=== PATIENT | male | born 1975 | race Caucasian/White ===

== ENCOUNTER 2019-09-15 06:09 | Emergency (ER) | payer MEDICARE, OTHER ==
[~2019-09-15] VITALS: Ht 177.8 cm; Wt 68.2 kg
[~2019-09-15 06:09] MED LIST: CHLO25CA10 PO; FLUO20CA39 PO; LAMO150T2 PO
[2019-09-15] MEDS ORDERED: LIDOcaine 1%/PF 5ML 10 MG/ML VIAL SQ ONE ×2 (06:45→07:30)
[2019-09-15] MEDS ORDERED: clindamycin 150mg capsule PO ONE (06:50)
[2019-09-15] MEDS ORDERED: TETanus/Pertussis (Acell)/Diphther VAC/PF (Tdap-Adult) 0.5ml syringe IMVAC ONE (06:50)
[2019-09-15] MEDS ORDERED: ciprofloxacin 250mg tablet PO ONE (06:50)
[2019-09-15] MEDS ORDERED: tetanus & diphtheria toxoid (Td) vaccine 0.5ml IMVAC ONE (06:50)
[2019-09-15 07:16] VITALS: BP 138/88
[2019-09-15] MEDS ORDERED: CLIN-142 PO (07:26)
[2019-09-15] MEDS ORDERED: CIPR-259 PO (07:26)
[2019-09-15] MEDS ORDERED: IBUP-1984 PO (07:26)
== END 2019-09-15 08:43 | disposition home or self-care (01) ==
LOC: ER 06:09
DX: S61.412A Laceration without foreign body of left hand, initial encounter (principal); S61.215A Laceration without foreign body of left ring finger without damage to nail, initial encounter; F41.9 Anxiety disorder, unspecified; F31.9 Bipolar disorder, unspecified; Z86.69 Personal history of other diseases of the nervous system and sense organs; Z88.0 Allergy status to penicillin; Z79.899 Other long term (current) drug therapy; W54.0XXA Bitten by dog, initial encounter; Y93.89 Activity, other specified; Y92.89 Other specified places as the place of occurrence of the external cause; Y99.8 Other external cause status
CPT/HCPCS: 12004; 73120; 90471; 99284

== ENCOUNTER 2019-09-16 12:53 | Emergency (ER) | payer MEDICARE, OTHER ==
[~2019-09-16] VITALS: Ht 177.8 cm; Wt 65.0 kg
[~2019-09-16 12:53] MED LIST changes: +BUSP10TA11 PO; +CIPR-259 PO; +CLIN-142 PO; +DESV50TA PO; +ESZO3TAB40 PO; +HYDR-3686 PO; +NALT50TA PO; +TRAZ-251 PO
[2019-09-16 12:58] VITALS: BP 144/104
== END 2019-09-16 14:35 | disposition home or self-care (01) ==
LOC: ER 12:53
DX: S61.412D Laceration without foreign body of left hand, subsequent encounter (principal); S61.215D Laceration without foreign body of left ring finger without damage to nail, subsequent encounter; W54.0XXD Bitten by dog, subsequent encounter
CPT/HCPCS: 99281; 99282

== ENCOUNTER 2019-09-23 07:06 | Emergency (ER) | payer MEDICARE ==
[~2019-09-23] VITALS: Ht 180.3 cm; Wt 68.2 kg
[~2019-09-23 07:06] MED LIST changes: -BUSP10TA11 PO; -DESV50TA PO; -ESZO3TAB40 PO; -HYDR-3686 PO; -NALT50TA PO; -TRAZ-251 PO
[2019-09-23] MEDS ORDERED: LORazepam 2 mg/ml vial IV ONE (07:15)
[2019-09-23] MEDS ORDERED: metoclopramide 5 mg/ml inj IV ONE (07:20)
[2019-09-23] MEDS ORDERED: diphenhydrAMINE 50 mg/ml inj IV ONE (07:20)
[2019-09-23 07:28] LABS: BASOPHILS # (AUTO) 0.1 X10'3 (0-0.2); BASOPHILS % (AUTO) 1.3 % (0-1); EOSINOPHILS % (AUTO) 0.1 % (0-6); HEMATOCRIT 29.3 % (42.0-52.0); HEMOGLOBIN 9.7 g/dl (14.0-17.9); LYMPHOCYTES # (AUTO) 0.3 X10'3 (1.1-4.8); LYMPHOCYTES % (AUTO) 5.6 % (21-51); MEAN CORPUSCULAR HEMOGLOBIN 28.2 PG (27.0-31.0); MEAN CORPUSCULAR VOLUME 85.4 FL (78-98); MEAN PLATELET VOLUME 6.5 FL (7.4-10.4); MONOCYTES # (AUTO) 0.8 X10'3 (0-0.9); MONOCYTES % (AUTO) 14.1 % (2-12); NEUTROPHILS # (AUTO) 4.7 X10'3 (1.8-7.7); NEUTROPHILS % (AUTO) 78.9 % (42-75); PLATELET COUNT 298 X10'3 (140-440); RED BLOOD COUNT 3.43 X10'6 (4.70-6.10); RED CELL DISTRIBUTION WIDTH 18.8 % (11.5-14.5)
[2019-09-23 07:42] LABS: ALANINE AMINOTRANSFERASE 13 U/L (12-78); ALBUMIN 3.1 G/DL (3.4-5.0); ALBUMIN/GLOBULIN RATIO 0.9 (1.1-1.5); ALKALINE PHOSPHATASE 59 IU/L (46-116); ANION GAP 19 (8-16); ASPARTATE AMINO TRANSFERASE 19 U/L (10-37); BILIRUBIN,TOTAL 0.5 MG/DL (0.1-1.0); BLOOD UREA NITROGEN 13 MG/DL (7-18); BUN/CREATININE RATIO 11.3 (5.4-32.0); CHLORIDE 104 MMOL/L (99-107); CREATININE 1.15 MG/DL (0.60-1.10); GLUCOSE 100 MG/DL (70-104); MAGNESIUM 1.7 MG/DL (1.5-2.4); POTASSIUM 3.5 MMOL/L (3.5-5.1); SODIUM 140 MMOL/L (135-145); TOTAL CARBON DIOXIDE 17.1 MMOL/L (24-32); TOTAL PROTEIN 6.6 G/DL (6.4-8.2); eGFR 69 ML/MIN
[2019-09-23] MEDS ORDERED: normal saline 1000ML IV soln IVB ONE (09:35)
[2019-09-23 09:38] LABS: ANISOCYTOSIS 2+; PLATELET ESTIMATE NORMAL
[2019-09-23 09:44] VITALS: BP 129/56
[2019-09-23] MEDS ORDERED: GABA-532 PO (09:50)
== END 2019-09-23 11:11 | disposition home or self-care (01) ==
LOC: ER 07:06
DX: E86.0 Dehydration (principal); F41.9 Anxiety disorder, unspecified; F10.239 Alcohol dependence with withdrawal, unspecified; F31.9 Bipolar disorder, unspecified; Z86.69 Personal history of other diseases of the nervous system and sense organs; Z88.0 Allergy status to penicillin; Z79.2 Long term (current) use of antibiotics; Z79.899 Other long term (current) drug therapy; Y90.9 Presence of alcohol in blood, level not specified
CPT/HCPCS: 36415; 80053; 83735; 84484; 85025; 93005; 96361; 96374; 96375; 99284; J1200; J2060; J2765; J7030

== ENCOUNTER 2019-12-10 16:27 | Inpatient (IN) | payer MEDICARE ==
[~2019-12-10] VITALS: Ht 180.3 cm; Wt 68.2 kg
[~2019-12-10 16:27] MED LIST changes: +BUSP10TA11 PO; -CIPR-259 PO; -CLIN-142 PO; +DESV50TA PO; +ESZO3TAB40 PO; +GABA-532 PO; +HYDR-3686 PO; +NALT50TA PO; +TRAZ-251 PO
[2019-12-10] MEDS ORDERED: LORazepam 2 mg/ml vial IV ONE ×2 (17:30→19:10)
[2019-12-10] MEDS ORDERED: ondansetron/PF 4mg/2ml inj IV ONE (17:30)
[2019-12-10] MEDS ORDERED: ringers solution, lacted 1,000 ML IV ONE ×3 (17:30→20:20)
[2019-12-10 18:17] LABS: BASOPHILS # (AUTO) 0.1 X10'3 (0-0.2); BASOPHILS % (AUTO) 1.3 % (0-1); EOSINOPHILS % (AUTO) 0 % (0-6); HEMOGLOBIN 11.4 g/dl (14.0-17.9); LYMPHOCYTES # (AUTO) 0.3 X10'3 (1.1-4.8); LYMPHOCYTES % (AUTO) 4.9 % (21-51); MEAN CORPUSCULAR HGB CONC 32.4 g/dL (33.0-36.5); MEAN CORPUSCULAR VOLUME 83.2 FL (78-98); MEAN PLATELET VOLUME 7.2 FL (7.4-10.4); MONOCYTES # (AUTO) 0.4 X10'3 (0-0.9); MONOCYTES % (AUTO) 7.2 % (2-12); NEUTROPHILS # (AUTO) 4.8 X10'3 (1.8-7.7); NEUTROPHILS % (AUTO) 86.6 % (42-75); PLATELET COUNT 221 X10'3 (140-440); RED BLOOD COUNT 4.21 X10'6 (4.70-6.10); RED CELL DISTRIBUTION WIDTH 22.8 % (11.5-14.5); WHITE BLOOD COUNT 5.5 X10'3 (4.5-11.0)
[2019-12-10 18:41] LABS: ALANINE AMINOTRANSFERASE 72 U/L (12-78); ALBUMIN 3.9 G/DL (3.4-5.0); ALBUMIN/GLOBULIN RATIO 1.1 (1.1-1.5); ALKALINE PHOSPHATASE 93 IU/L (46-116); ANION GAP 25 (8-16); ASPARTATE AMINO TRANSFERASE 122 U/L (10-37); BILIRUBIN,TOTAL 0.7 MG/DL (0.1-1.0); BLOOD UREA NITROGEN 20 MG/DL (7-18); BUN/CREATININE RATIO 13.7 (5.4-32.0); CALCIUM 8.1 MG/DL (8.5-10.1); CHLORIDE 96 MMOL/L (99-107); CREATININE 1.46 MG/DL (0.60-1.10); ETHANOL 0.254 GM/DL (0.0-0.010); GLUCOSE 65 MG/DL (70-104); LIPASE 685 U/L (73-393); POTASSIUM 4.2 MMOL/L (3.5-5.1); SODIUM 137 MMOL/L (135-145); TOTAL CARBON DIOXIDE 15.7 MMOL/L (24-32); TOTAL PROTEIN 7.3 G/DL (6.4-8.2); TROPONIN I < 0.04 NG/ML (0.0-0.05); eGFR 52 ML/MIN
[2019-12-10 18:46] LABS: ACETAMINOPHEN < 2.0 UG/ML (10-30); VALPROATE < 3.0 UG/ML (50-100)
[2019-12-10] MEDS ORDERED: dextrose 50%-water 50ml dispensing syringe IV ONE (18:50)
[2019-12-10] MEDS ORDERED: thiamine inj. 100 MG in normal saline 100ml IV soln 99 ML IV ONE (19:10)
[2019-12-10 19:20] LABS: ABG BASE EXCESS -9.9 mmol/L (-2.0-3.0); ABG HCO3 14.5 mmol/L (22.0-26.0); ABG OXYGEN SATURATION 93.1 % (95-98); ABG PH (T) 7.347 (7.350-7.450); ABG PO2 (T) 76.6 mmHg (83-108); ALLEN'S TEST POSITIVE; FCOHb 0.2 % (0.5-1.5); FMetHb 0.3 % (0.3-1.12); FO2Hb 92.6 % (94-100)
[2019-12-10 19:38] LABS: ANISOCYTOSIS 3+; PLATELET ESTIMATE NORMAL
[2019-12-10] MEDS ORDERED: GABA-532 PO (20:07)
[2019-12-10] MEDS ORDERED: BUSP5TAB3 PO (20:07)
[2019-12-10] MEDS ORDERED: OLAN5TAB3 PO (20:07)
[2019-12-10] MEDS ORDERED: LORA-268 PO (20:07)
[2019-12-10] MEDS ORDERED: ZOLP12.543 PO (20:07)
[2019-12-10] MEDS ORDERED: PANT-47 PO (20:07)
[2019-12-10] MEDS ORDERED: dicyclomine 10 MG capsule PO PRN (20:10)
[2019-12-10] MEDS ORDERED: metoclopramide 5 mg/ml inj IV PRN (20:10)
[2019-12-10] MEDS ORDERED: thiamine 100mg/ml 2ml inj. IV ONE ×2 (20:10→20:30)
[2019-12-10] MEDS ORDERED: mag hydrox/Alum hydrox/simeth 30ml oral suspension PO PRN (20:10)
[2019-12-10] MEDS ORDERED: magnesium hydroxide 30ml (MOM) UD suspension PO PRN (20:10)
[2019-12-10] MEDS ORDERED: dextrose 50%-water 50ml dispensing syringe IV PRN (20:10)
[2019-12-10] MEDS ORDERED: HYDROcodone/acetaminophen 5mg/325mg tablet PO PRN (20:10)
[2019-12-10] MEDS ORDERED: morphine 2 MG/ML inj. syringe IV PRN ×2 (20:10)
[2019-12-10] MEDS ORDERED: HYDROcodone/acetaminophen 10/325mg tab PO PRN (20:10)
[2019-12-10] MEDS ORDERED: acetaminophen 325mg tablet PO PRN ×2 (20:10)
[2019-12-10] MEDS ORDERED: haloperidol lactate 5mg/ml inj IM PRN (20:10)
[2019-12-10] MEDS ORDERED: haloperidol 5mg tablet PO PRN (20:10)
[2019-12-10] MEDS ORDERED: LORazepam 0.5 MG tablet PO PRN (20:10)
[2019-12-10] MEDS ORDERED: ondansetron/PF 4mg/2ml inj IV PRN (20:10)
[2019-12-10] MEDS ORDERED: cloNIDine 0.1 mg tablet PO PRN (20:10)
[2019-12-10] MEDS: lamoTRIgine 100mg tablet PO SCH (20:26)
[2019-12-10] MEDS: lamoTRIgine 25mg tablet PO SCH (20:27)
[2019-12-10 20:32] LABS: MAGNESIUM 2.1 MG/DL (1.5-2.4); PHOSPHORUS 4.9 MG/DL (2.3-4.5)
[2019-12-10] MEDS: LORazepam 2 mg/ml vial IV PRN (20:51)
[2019-12-10 21:08] LABS: URINE AMPHETAMINE SCREEN NEGATIVE (Neg); URINE BARBITUATE SCREEN NEGATIVE (Neg); URINE BENZODIAZEPINES SCREEN NEGATIVE (Neg); URINE CANNABINOID SCREEN POSITIVE (Neg); URINE COCAINE SCREEN NEGATIVE (Neg); URINE METHADONE SCREEN NEGATIVE (Neg); URINE OPIATE SCREEN NEGATIVE (Neg); URINE PHENCYCLIDINE SCREEN NEGATIVE (Neg)
[2019-12-10 21:12] LABS: CLARITY,URINE CLEAR (Clear); COLOR,URINE YELLOW (Yellow); GLUCOSE, URINE NEGATIVE (Neg); KETONES,URINE 40 mg/dl (Neg); LEUKOCYTE ESTERASE ,URINE NEGATIVE (Neg); NITRITES, URINE NEGATIVE (Neg); OCCULT BLOOD,URINE NEGATIVE (Neg); PH,URINE 5.5 (4.8-8.0); PROTEIN,URINE 30 mg/dl (Neg); UROBILINOGEN,URINE 0.2 E.U/dL (0.2-1.0)
[2019-12-10 21:31] LABS: UA COLLECTION TYPE URINAL
[2019-12-10 21:45] LABS: BACTERIA,URINE NONE SEEN /HPF (Neg); RBC,URINE NONE SEEN /HPF (0-2); SQUAMOUS EPITHELIAL CELL,UR FEW /LPF (FEW); WBC,URINE NONE SEEN /HPF (0-4)
[2019-12-10 23:00] VITALS: BP 135/86
[2019-12-10] MEDS: OLANZAPINE 5 MG TABLET PO SCH (23:08)
[2019-12-10] MEDS: busPIRone 5mg tablet PO SCH (23:08)
[2019-12-10] MEDS: gabapentin 300mg capsule PO SCH (23:08)
[2019-12-10] MEDS: zolpidem 5mg tablet PO SCH (23:08)
--- NOTE | 2019-12-10 23:36 | NUR ---
PT BROUGHT TO FLOOR, TRANSFERRED SELF TO BED. VSS, PLACED ON TELEMETRY MONITORING IN NO APPARENT DISTRESS. PT COOPERATIVE WITH PLAN OF CARE. PROVIDED EAR PLUGS AND SLEEPING MASK AND NIGHT TIME MEDS SCHEDULED. WILL CONTINUE TO MONITOR
[2019-12-11] MEDS ORDERED: normal saline 1000ml 1,000 ML IV SCH (03:25)
--- NOTE | 2019-12-11 03:46 | NUR ---
paged Dr. Keyes about repeat lactic with morning labs r/t decrease from 8.8 to 6.7
--- NOTE | 2019-12-11 04:28 | NUR ---
PT GLUCOMETER 48MG/DL PT DENIES HYPOGLYCEMIC SYMPTOMS. TX WITH D50 PER ORDER. WILL RECHECK AT 2972
--- NOTE | 2019-12-11 04:35 | NUR ---
REPEAT ACCUCHECK 153MG/DL. WILL CONTINUE TO MONITOR
--- NOTE | 2019-12-11 05:40 | NUR ---
per Dr. Keyes repeat lactic acid. order placed
[2019-12-11 06:01] LABS: BASOPHILS # (AUTO) 0.1 X10'3 (0-0.2); BASOPHILS % (AUTO) 1.3 % (0-1); EOSINOPHILS # (AUTO) 0.1 X10'3 (0-0.9); EOSINOPHILS % (AUTO) 2.3 % (0-6); HEMOGLOBIN 8.8 g/dl (14.0-17.9); LYMPHOCYTES # (AUTO) 0.8 X10'3 (1.1-4.8); LYMPHOCYTES % (AUTO) 19.2 % (21-51); MEAN CORPUSCULAR HEMOGLOBIN 26.4 PG (27.0-31.0); MEAN CORPUSCULAR HGB CONC 32.7 g/dL (33.0-36.5); MEAN CORPUSCULAR VOLUME 80.9 FL (78-98); MEAN PLATELET VOLUME 7.1 FL (7.4-10.4); MONOCYTES # (AUTO) 0.6 X10'3 (0-0.9); MONOCYTES % (AUTO) 15.5 % (2-12); NEUTROPHILS # (AUTO) 2.4 X10'3 (1.8-7.7); NEUTROPHILS % (AUTO) 61.7 % (42-75); PLATELET COUNT 143 X10'3 (140-440); RED BLOOD COUNT 3.34 X10'6 (4.70-6.10); RED CELL DISTRIBUTION WIDTH 22.5 % (11.5-14.5); WHITE BLOOD COUNT 3.9 X10'3 (4.5-11.0)
[2019-12-11 06:13] LABS: ALANINE AMINOTRANSFERASE 52 U/L (12-78); ALBUMIN 2.9 G/DL (3.4-5.0); ALBUMIN/GLOBULIN RATIO 1.1 (1.1-1.5); ALKALINE PHOSPHATASE 64 IU/L (46-116); ANION GAP 5 (8-16); ASPARTATE AMINO TRANSFERASE 56 U/L (10-37); BILIRUBIN,TOTAL 0.9 MG/DL (0.1-1.0); BLOOD UREA NITROGEN 13 MG/DL (7-18); CALCIUM 7.9 MG/DL (8.5-10.1); CHLORIDE 105 MMOL/L (99-107); CREATININE 1.08 MG/DL (0.60-1.10); GLUCOSE 99 MG/DL (70-104); POTASSIUM 3.9 MMOL/L (3.5-5.1); SODIUM 139 MMOL/L (135-145); TOTAL CARBON DIOXIDE 29.1 MMOL/L (24-32); TOTAL PROTEIN 5.5 G/DL (6.4-8.2); eGFR 74 ML/MIN
--- NOTE | 2019-12-11 06:35 | NUR ---
Patient in room [facility]. I have received report from Giovanny LARSON and had the opportunity to ask questions and assume patient care.
[2019-12-11] MEDS: folic acid 1mg tablet PO SCH (07:11)
[2019-12-11] MEDS: thiamine 100mg tablet PO SCH (07:12)
[2019-12-11] MEDS: gabapentin 300mg capsule PO SCH ×3 (07:12→23:33)
[2019-12-11] MEDS: busPIRone 5mg tablet PO SCH ×3 (07:12→20:38)
[2019-12-11] MEDS: multivitamins, therapeutics tablet PO SCH (07:12)
[2019-12-11] MEDS: lamoTRIgine 25mg tablet PO SCH ×2 (07:12→20:38)
[2019-12-11] MEDS: pantoprazole 40mg Tablet.DR PO SCH (07:12)
[2019-12-11] MEDS: lamoTRIgine 100mg tablet PO SCH ×2 (07:12→20:37)
[2019-12-11 07:14] LABS: TOTAL CELLS COUNTED 100
[2019-12-11 07:15] LABS: ANISOCYTOSIS 2+; HYPOCHROMASIA 1+; MICROCYTOSIS 1+; PLATELET ESTIMATE DECREASED
[2019-12-11 08:00] VITALS: BP 142/91
[2019-12-11] MEDS ORDERED: LORazepam 1 MG tablet PO PRN (09:15)
[2019-12-11 09:41] LABS: LIPASE 453 U/L (73-393)
[2019-12-11] MEDS ORDERED: FLU VACC QS2019-20 36MOS UP/PF 60 MCG/0.5 ML SYRINGE IMVAC ONE (10:00)
[2019-12-11 11:00] VITALS: BP_SYST 104; BP_SYST 129; BP_SYST 142; BP_DIAS 57; BP_DIAS 76; BP_DIAS 84
[2019-12-11] MEDS ORDERED: DESV50TA PO (11:38)
[2019-12-11 12:00] VITALS: BP_SYST 134; BP_SYST 142; BP_DIAS 101; BP_DIAS 94; BP_DIAS 99
[2019-12-11] MEDS: LORazepam 2 mg/ml vial IV PRN ×2 (12:26→16:11)
[2019-12-11] MEDS: venlafaxine 25mg tablet PO SCH ×2 (13:16→20:38)
--- NOTE | 2019-12-11 17:26 | NUR ---
Patients was here today and has been looking into alcohol rehab for patient with patients consent. Per the rehabs need to have a TB screening, HIV test, Hepatitis panal and Tox screen. Per Dr Theron clements to order labs for patient tox screen already done and would like to have the chest xray done for TB rather than the skin test.
[2019-12-11 18:15] VITALS: BP 147/90
[2019-12-11 18:25] LABS: ALANINE AMINOTRANSFERASE 51 U/L (12-78); ALBUMIN 3.3 G/DL (3.4-5.0); ALBUMIN/GLOBULIN RATIO 1.2 (1.1-1.5); ALKALINE PHOSPHATASE 72 IU/L (46-116); ASPARTATE AMINO TRANSFERASE 43 U/L (10-37); BILIRUBIN,DIRECT 0.2 MG/DL (0-0.3); TOTAL PROTEIN 6.1 G/DL (6.4-8.2)
--- NOTE | 2019-12-11 18:40 | NUR ---
Problems reprioritized. Patient report given, questions answered & plan of care reviewed with Chanel LARSON.
--- NOTE | 2019-12-11 18:53 | NUR ---
Patient in room [facility]. I have received report from MARSHA Monsivais and had the opportunity to ask questions and assume patient care.
[2019-12-11] MEDS: OLANZAPINE 5 MG TABLET PO SCH (20:37)
[2019-12-11] MEDS: zolpidem 5mg tablet PO SCH (20:39)
[2019-12-12 00:15] VITALS: BP 121/79
[2019-12-12 05:09] LABS: BASOPHILS % (AUTO) 0.5 % (0-1); EOSINOPHILS # (AUTO) 0.2 X10'3 (0-0.9); EOSINOPHILS % (AUTO) 4.4 % (0-6); HEMATOCRIT 31.1 % (42.0-52.0); HEMOGLOBIN 10.1 g/dl (14.0-17.9); LYMPHOCYTES % (AUTO) 18.7 % (21-51); MEAN CORPUSCULAR HEMOGLOBIN 26.6 PG (27.0-31.0); MEAN CORPUSCULAR HGB CONC 32.5 g/dL (33.0-36.5); MEAN CORPUSCULAR VOLUME 81.7 FL (78-98); MEAN PLATELET VOLUME 7.3 FL (7.4-10.4); MONOCYTES # (AUTO) 0.4 X10'3 (0-0.9); MONOCYTES % (AUTO) 7.7 % (2-12); NEUTROPHILS # (AUTO) 3.5 X10'3 (1.8-7.7); NEUTROPHILS % (AUTO) 68.7 % (42-75); PLATELET COUNT 141 X10'3 (140-440); RED BLOOD COUNT 3.81 X10'6 (4.70-6.10); WHITE BLOOD COUNT 5.2 X10'3 (4.5-11.0)
[2019-12-12 05:16] LABS: ALANINE AMINOTRANSFERASE 45 U/L (12-78); ALBUMIN 3.1 G/DL (3.4-5.0); ALKALINE PHOSPHATASE 70 IU/L (46-116); ANION GAP 4 (8-16); ASPARTATE AMINO TRANSFERASE 32 U/L (10-37); BILIRUBIN,TOTAL 0.9 MG/DL (0.1-1.0); BLOOD UREA NITROGEN 10 MG/DL (7-18); BUN/CREATININE RATIO 7.9 (5.4-32.0); CALCIUM 8.6 MG/DL (8.5-10.1); CHLORIDE 105 MMOL/L (99-107); CREATININE 1.26 MG/DL (0.60-1.10); GLUCOSE 87 MG/DL (70-104); POTASSIUM 3.7 MMOL/L (3.5-5.1); SODIUM 141 MMOL/L (135-145); TOTAL CARBON DIOXIDE 31.9 MMOL/L (24-32); TOTAL PROTEIN 6.1 G/DL (6.4-8.2); eGFR 62 ML/MIN
--- NOTE | 2019-12-12 06:32 | NUR ---
Problems reprioritized. Patient report given, questions answered & plan of care reviewed with MARSHA Whitaker.
--- NOTE | 2019-12-12 06:42 | NUR ---
Patient in room [facility]. I have received report from Chanel LARSON and had the opportunity to ask questions and assume patient care.
[2019-12-12 07:25] VITALS: BP 123/87
[2019-12-12] MEDS: busPIRone 5mg tablet PO SCH ×3 (07:28→21:40)
[2019-12-12] MEDS: folic acid 1mg tablet PO SCH (07:28)
[2019-12-12] MEDS: pantoprazole 40mg Tablet.DR PO SCH (07:28)
[2019-12-12] MEDS: lamoTRIgine 100mg tablet PO SCH ×2 (07:28→21:39)
[2019-12-12] MEDS: thiamine 100mg tablet PO SCH (07:28)
[2019-12-12] MEDS: venlafaxine 25mg tablet PO SCH ×3 (07:28→21:39)
[2019-12-12] MEDS: gabapentin 300mg capsule PO SCH ×3 (07:28→23:36)
[2019-12-12] MEDS: multivitamins, therapeutics tablet PO SCH (07:28)
[2019-12-12] MEDS: lamoTRIgine 25mg tablet PO SCH ×2 (07:28→21:39)
[2019-12-12 11:42] VITALS: BP 116/77
[2019-12-12] MEDS: LORazepam 2 mg/ml vial IV PRN ×2 (15:17→19:43)
[2019-12-12 15:23] LABS: HIV ANTIBODY 1&2 RAPID NON-REACTIVE (Neg)
--- NOTE | 2019-12-12 18:24 | NUR ---
Problems reprioritized. Patient report given, questions answered & plan of care reviewed with Pat RN.
[2019-12-12 19:30] VITALS: BP 128/80
[2019-12-12 20:00] VITALS: BP_SYST 113; BP_SYST 127; BP_SYST 129; BP_DIAS 64; BP_DIAS 82; BP_DIAS 91
[2019-12-12] MEDS ORDERED: LORazepam 1 MG tablet PO PRN (20:10)
[2019-12-12] MEDS ORDERED: zolpidem 5mg tablet PO SCH (21:00)
[2019-12-12] MEDS: OLANZAPINE 5 MG TABLET PO SCH (21:40)
[2019-12-13] VITALS: BP 127/83
[2019-12-13 04:57] LABS: BASOPHILS % (AUTO) 0.7 % (0-1); EOSINOPHILS # (AUTO) 0.3 X10'3 (0-0.9); EOSINOPHILS % (AUTO) 6.3 % (0-6); HEMATOCRIT 32.5 % (42.0-52.0); HEMOGLOBIN 10.5 g/dl (14.0-17.9); LYMPHOCYTES # (AUTO) 1.2 X10'3 (1.1-4.8); LYMPHOCYTES % (AUTO) 23.1 % (21-51); MEAN CORPUSCULAR HEMOGLOBIN 26.8 PG (27.0-31.0); MEAN CORPUSCULAR HGB CONC 32.3 g/dL (33.0-36.5); MEAN CORPUSCULAR VOLUME 82.9 FL (78-98); MEAN PLATELET VOLUME 7.4 FL (7.4-10.4); MONOCYTES # (AUTO) 0.4 X10'3 (0-0.9); NEUTROPHILS # (AUTO) 3.1 X10'3 (1.8-7.7); NEUTROPHILS % (AUTO) 61.9 % (42-75); PLATELET COUNT 149 X10'3 (140-440); RED BLOOD COUNT 3.92 X10'6 (4.70-6.10); RED CELL DISTRIBUTION WIDTH 22.1 % (11.5-14.5)
[2019-12-13 05:15] LABS: ALANINE AMINOTRANSFERASE 41 U/L (12-78); ALBUMIN 3.1 G/DL (3.4-5.0); ALBUMIN/GLOBULIN RATIO 0.9 (1.1-1.5); ALKALINE PHOSPHATASE 67 IU/L (46-116); ANION GAP 6 (8-16); ASPARTATE AMINO TRANSFERASE 25 U/L (10-37); BILIRUBIN,TOTAL 0.4 MG/DL (0.1-1.0); BLOOD UREA NITROGEN 10 MG/DL (7-18); BUN/CREATININE RATIO 8.7 (5.4-32.0); CALCIUM 8.5 MG/DL (8.5-10.1); CHLORIDE 106 MMOL/L (99-107); CREATININE 1.15 MG/DL (0.60-1.10); GLUCOSE 87 MG/DL (70-104); POTASSIUM 3.4 MMOL/L (3.5-5.1); SODIUM 145 MMOL/L (135-145); TOTAL CARBON DIOXIDE 32.9 MMOL/L (24-32); TOTAL PROTEIN 6.4 G/DL (6.4-8.2); eGFR 69 ML/MIN
--- NOTE | 2019-12-13 06:34 | NUR ---
Patient in room [facility]. I have received report from MARSHA SAM and had the opportunity to ask questions and assume patient care.
[2019-12-13 08:00] VITALS: BP 127/83
[2019-12-13] MEDS: LORazepam 2 mg/ml vial IV PRN ×2 (09:01→12:03)
[2019-12-13] MEDS: venlafaxine 25mg tablet PO SCH (10:38)
[2019-12-13] MEDS: gabapentin 300mg capsule PO SCH (10:39)
[2019-12-13] MEDS: lamoTRIgine 100mg tablet PO SCH (10:39)
[2019-12-13] MEDS: lamoTRIgine 25mg tablet PO SCH (10:39)
[2019-12-13] MEDS: busPIRone 5mg tablet PO SCH (10:40)
[2019-12-13] MEDS: multivitamins, therapeutics tablet PO SCH (10:40)
[2019-12-13] MEDS: thiamine 100mg tablet PO SCH (10:40)
[2019-12-13] MEDS: folic acid 1mg tablet PO SCH (10:40)
[2019-12-13] MEDS: pantoprazole 40mg Tablet.DR PO SCH (10:40)
[2019-12-13] MEDS ORDERED: ATI1T PO (10:59)
[2019-12-13 11:00] VITALS: BP 124/87
--- NOTE | 2019-12-13 13:25 | NUR ---
PATIENT STABLE AND APPROPRIATE FOR DISCHARGE, TELE TAKEN OFF, IV TAKEN OUT EDUCATION GIVEN ALL BELONGINGS SENT WITH PATIENT, PRESCRIPTION E-SCRIPTED TO PREFERRED PHARMACY, PATIENT TAKEN TO LOBBY BY WHEELCHAIR TO AN AWAITING CAR WHERE FRIEND WILL TAKE PATIENT HOME
[2019-12-14] MEDS ORDERED: LORazepam 2 mg/ml vial IV PRN (20:10)
[2019-12-14] MEDS ORDERED: LORazepam 1 MG tablet PO PRN (20:10)
--- NOTE | 2019-12-16 14:55 | NUR ---
Case Management DC follow up: LM/VM for rtn call if questions, concerns, post DC status
== END 2019-12-13 13:25 | disposition home or self-care (01) | DRG 896 ==
LOC: ER 16:27 → ED HOLD 20:09 → SUR 3N 22:46
PROVIDERS: ADMIT Internal Medicine; ATTEND Internal Medicine
DX: F10.239 Alcohol dependence with withdrawal, unspecified (principal); K85.20 Alcohol induced acute pancreatitis without necrosis or infection; E87.2 Acidosis; N17.9 Acute kidney failure, unspecified; F29 Unspecified psychosis not due to a substance or known physiological condition; E16.2 Hypoglycemia, unspecified; E86.0 Dehydration; F41.9 Anxiety disorder, unspecified; F32.9 Major depressive disorder, single episode, unspecified; F41.0 Panic disorder [episodic paroxysmal anxiety]; Z79.899 Other long term (current) drug therapy; Z23 Encounter for immunization; Z88.0 Allergy status to penicillin
CPT/HCPCS: 36415; 36600; 71045; 80053; 80076; 80164; 80178; 80305; 80320; 80329; 81001; 82803; 82948; 83605; 83690; 83735; 84100; 84443; 84484; 85018; 85025; 86703; 87081; 93005; 99285; G0378; J2060; J2405; J3411; J7030; J7120; Q2037

== ENCOUNTER 2019-12-17 11:36 | Emergency (ER) | payer MEDICARE ==
[~2019-12-17] VITALS: Ht 180.3 cm; Wt 70.5 kg
[~2019-12-17 11:36] MED LIST changes: +ATI1T PO; -BUSP10TA11 PO; +BUSP5TAB3 PO; -CHLO25CA10 PO; -ESZO3TAB40 PO; -FLUO20CA39 PO; -HYDR-3686 PO; +LORA-268 PO; -NALT50TA PO; +OLAN5TAB3 PO; +PANT-47 PO; -TRAZ-251 PO; +ZOLP12.543 PO
[2019-12-17] MEDS ORDERED: gabapentin 400mg capsule PO STA (12:14)
[2019-12-17] MEDS ORDERED: chlordiazePOXIDE 25mg capsule PO ONE (12:15)
[2019-12-17] MEDS ORDERED: CHLO25CA10 PO (12:33)
[2019-12-17] MEDS ORDERED: GABA-532 PO (12:33)
[2019-12-17 13:11] VITALS: BP 158/91
== END 2019-12-17 13:12 | disposition home or self-care (01) ==
LOC: ER 11:36
DX: F10.239 Alcohol dependence with withdrawal, unspecified (principal); K21.9 Gastro-esophageal reflux disease without esophagitis; F31.9 Bipolar disorder, unspecified; F41.0 Panic disorder [episodic paroxysmal anxiety]; F12.90 Cannabis use, unspecified, uncomplicated; Z86.69 Personal history of other diseases of the nervous system and sense organs; Z88.0 Allergy status to penicillin; Z79.899 Other long term (current) drug therapy; Y90.9 Presence of alcohol in blood, level not specified
CPT/HCPCS: 99283

== ENCOUNTER 2019-12-24 09:38 | Emergency (ER) | payer MEDICARE ==
[~2019-12-24] VITALS: Ht 180.3 cm; Wt 70.5 kg
[~2019-12-24 09:38] MED LIST changes: +CHLO25CA10 PO
[2019-12-24 09:41] VITALS: BP 148/107
--- NOTE | 2019-12-24 10:37 | NUR ---
PT HAVING HIGH ANXIETY FROM STAYING [facility]. ALSO HAS SZ DISORDER AND FELT LIKE A SZ WAS COMING ON EARLIER, NO SZ.
[2019-12-24] MEDS ORDERED: LORazepam 1 MG tablet PO ONE (11:35)
[2019-12-24] MEDS ORDERED: CHLO25CA10 PO (11:38)
== END 2019-12-24 11:47 | disposition home or self-care (01) ==
LOC: ER 09:38
DX: F41.9 Anxiety disorder, unspecified (principal); F31.9 Bipolar disorder, unspecified; K21.9 Gastro-esophageal reflux disease without esophagitis; F41.0 Panic disorder [episodic paroxysmal anxiety]; F10.10 Alcohol abuse, uncomplicated; Z86.69 Personal history of other diseases of the nervous system and sense organs; Z88.0 Allergy status to penicillin; Z79.899 Other long term (current) drug therapy; Y90.9 Presence of alcohol in blood, level not specified
CPT/HCPCS: 99283

== ENCOUNTER 2020-08-11 08:09 | Emergency (ER) | payer MEDICARE ==
[~2020-08-11] VITALS: Ht 177.8 cm; Wt 72.7 kg
[~2020-08-11 08:09] MED LIST changes: -ATI1T PO; -BUSP5TAB3 PO; -CHLO25CA10 PO; -DESV50TA PO; +GABA-530 PO; -GABA-532 PO; -LORA-268 PO; +LORA-269 PO; -OLAN5TAB3 PO; -ZOLP12.543 PO
[2020-08-11 09:28] LABS: BASOPHILS # (AUTO) 0.1 X10'3 (0-0.2); EOSINOPHILS # (AUTO) 0.1 X10'3 (0-0.9); EOSINOPHILS % (AUTO) 1.1 % (0-6); HEMATOCRIT 33.1 % (42.0-52.0); HEMOGLOBIN 10.9 g/dl (14.0-17.9); LYMPHOCYTES # (AUTO) 0.8 X10'3 (1.1-4.8); LYMPHOCYTES % (AUTO) 13.8 % (21-51); MEAN CORPUSCULAR HEMOGLOBIN 26.6 PG (27.0-31.0); MEAN CORPUSCULAR HGB CONC 32.8 g/dL (33.0-36.5); MEAN CORPUSCULAR VOLUME 81.2 FL (78-98); MEAN PLATELET VOLUME 6.8 FL (7.4-10.4); MONOCYTES # (AUTO) 0.6 X10'3 (0-0.9); MONOCYTES % (AUTO) 11.6 % (2-12); NEUTROPHILS % (AUTO) 72.5 % (42-75); PLATELET COUNT 208 X10'3 (140-440); RED BLOOD COUNT 4.08 X10'6 (4.70-6.10); WHITE BLOOD COUNT 5.4 X10'3 (4.5-11.0)
[2020-08-11 09:41] LABS: ALANINE AMINOTRANSFERASE 31 U/L (12-78); ALBUMIN 3.6 G/DL (3.4-5.0); ALBUMIN/GLOBULIN RATIO 1.1 (1.1-1.5); ALKALINE PHOSPHATASE 75 IU/L (46-116); ANION GAP 11 (8-16); ASPARTATE AMINO TRANSFERASE 40 U/L (10-37); BILIRUBIN,TOTAL 0.8 MG/DL (0.1-1.0); BLOOD UREA NITROGEN 15 MG/DL (7-18); CALCIUM 8.2 MG/DL (8.5-10.1); CHLORIDE 100 MMOL/L (99-107); CREATININE 1.07 MG/DL (0.60-1.10); ETHANOL 0.085 GM/DL (0.0-0.010); GLUCOSE 80 MG/DL (70-104); POTASSIUM 3.4 MMOL/L (3.5-5.1); SODIUM 139 MMOL/L (135-145); TOTAL CARBON DIOXIDE 28.3 MMOL/L (24-32); TOTAL PROTEIN 6.9 G/DL (6.4-8.2); eGFR 75 ML/MIN
[2020-08-11 10:04] LABS: ANISOCYTOSIS 3+; PLATELET ESTIMATE NORMAL
[2020-08-11 10:05] LABS: POLYCHROMASIA FEW
[2020-08-11 12:28] VITALS: BP 127/84
== END 2020-08-11 12:31 | disposition home or self-care (01) ==
LOC: ER 08:10
DX: F10.129 Alcohol abuse with intoxication, unspecified (principal); K21.9 Gastro-esophageal reflux disease without esophagitis; F31.9 Bipolar disorder, unspecified; F12.90 Cannabis use, unspecified, uncomplicated; Z88.0 Allergy status to penicillin; Z86.69 Personal history of other diseases of the nervous system and sense organs; Z79.899 Other long term (current) drug therapy; Y90.0 Blood alcohol level of less than 20 mg/100 ml
CPT/HCPCS: 36415; 70450; 80053; 80320; 85008; 85025; 99284

== ENCOUNTER 2020-08-17 05:57 | Emergency (ER) | payer MEDICARE ==
[~2020-08-17] VITALS: Ht 180.3 cm; Wt 75.0 kg
[2020-08-17 07:35] LABS: URINE AMPHETAMINE SCREEN NEGATIVE (Neg); URINE BARBITUATE SCREEN NEGATIVE (Neg); URINE BENZODIAZEPINES SCREEN NEGATIVE (Neg); URINE CANNABINOID SCREEN NEGATIVE (Neg); URINE COCAINE SCREEN NEGATIVE (Neg); URINE METHADONE SCREEN NEGATIVE (Neg); URINE OPIATE SCREEN NEGATIVE (Neg); URINE PHENCYCLIDINE SCREEN NEGATIVE (Neg)
[2020-08-17 07:39] LABS: EOSINOPHILS # (AUTO) 0.1 X10'3 (0-0.9); EOSINOPHILS % (AUTO) 5.4 % (0-6); MONOCYTES # (AUTO) 0.3 X10'3 (0-0.9); NEUTROPHILS # (AUTO) 1.1 X10'3 (1.8-7.7); WHITE BLOOD COUNT 2.6 X10'3 (4.5-11.0)
[2020-08-17 07:42] LABS: BASOPHILS % (AUTO) 1.5 % (0-1); HEMATOCRIT 33.1 % (42.0-52.0); HEMOGLOBIN 10.7 g/dl (14.0-17.9); LYMPHOCYTES % (AUTO) 38.9 % (21-51); MEAN CORPUSCULAR HEMOGLOBIN 26.7 PG (27.0-31.0); MEAN CORPUSCULAR HGB CONC 32.2 g/dL (33.0-36.5); MEAN PLATELET VOLUME 6.8 FL (7.4-10.4); MONOCYTES % (AUTO) 11.7 % (2-12); NEUTROPHILS % (AUTO) 42.5 % (42-75); PLATELET COUNT 185 X10'3 (140-440); RED BLOOD COUNT 3.99 X10'6 (4.70-6.10); RED CELL DISTRIBUTION WIDTH 23.8 % (11.5-14.5)
[2020-08-17 08:08] LABS: ALANINE AMINOTRANSFERASE 30 U/L (12-78); ALBUMIN 3.2 G/DL (3.4-5.0); ALKALINE PHOSPHATASE 75 IU/L (46-116); ASPARTATE AMINO TRANSFERASE 24 U/L (10-37); BILIRUBIN,TOTAL 0.3 MG/DL (0.1-1.0); BLOOD UREA NITROGEN 9 MG/DL (7-18); BUN/CREATININE RATIO 7.7 (5.4-32.0); CALCIUM 7.6 MG/DL (8.5-10.1); CREATININE 1.17 MG/DL (0.60-1.10); ETHANOL 0.243 GM/DL (0.0-0.010); GLUCOSE 92 MG/DL (70-104); TOTAL CARBON DIOXIDE 29.3 MMOL/L (24-32); TOTAL PROTEIN 6.3 G/DL (6.4-8.2); eGFR 67 ML/MIN
[2020-08-17 09:15] LABS: PLATELET ESTIMATE NORMAL; TOTAL CELLS COUNTED 100
[2020-08-17 09:16] LABS: ANISOCYTOSIS 3+
[2020-08-17 09:17] LABS: HYPOCHROMASIA 1+; POLYCHROMASIA FEW
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
--- NOTE | 2020-08-17 09:21 | NUR ---
Patient states he had quite alcohol until about 2.5 weeks ago when he spoke to his mother.
[2020-08-17 09:51] LABS: ANION GAP 10 (8-16); CHLORIDE 107 MMOL/L (99-107); POTASSIUM 3.7 MMOL/L (3.5-5.1); SODIUM 144 MMOL/L (135-145)
--- NOTE | 2020-08-17 11:05 | NUR ---
Patient sleeping supine in bed. No distress observed. Continue to monitor.
[2020-08-17] MEDS ORDERED: GABA-530 PO (11:40)
[2020-08-17] MEDS ORDERED: ATI1T PO (11:40)
[2020-08-17] MEDS ORDERED: LORazepam 1 MG tablet PO PRN ×2 (13:00→17:00)
[2020-08-17] MEDS: gabapentin 100mg capsule PO SCH ×2 (13:21→20:11)
[2020-08-17] MEDS ORDERED: lamoTRIgine 100mg tablet PO SCH (13:30)
[2020-08-17] MEDS ORDERED: lamoTRIgine 25mg tablet PO SCH (13:30)
--- NOTE | 2020-08-17 13:35 | NUR ---
PT WAS GIVEN LUNCH AND MEDS HE IS NOW RESTING COMFORTABLY
--- NOTE | 2020-08-17 13:54 | NUR ---
PT IS CONSERNED ABOUT HIS [address] IN [place], HE PAID FOR TODAY UNTIL TOMORROW. I LET HIM KNOW THAT [facility] WILL BE COMING TO EVALUATE HIM LATER TODAY AND THEN WE WILL HAVE A BETTER IDEA ABOUT THE PLAN OF CARE. HE'S ALSO WORRIED ABOUT HIS FRIEND THAT LIVES IN [place] THAT IS EXPECTING HIM TO COME THERE AND WOULD LIKE TO TALK TO HER AND LET HER KNOW WHAT IS HAPPENING. ONCE PRIMARY RN IS BACK FROM LUNCH WE WILL TRY TO GET PHONE NUMBER OUT OF PTS PHONE SO HE CAN CONTACT HER.
--- NOTE | 2020-08-17 14:10 | NUR ---
Patient requesting ear plugs due to another patient snoring loudly. RN called and [employer] will send some ear plugs up after they finish their inventory.
--- NOTE | 2020-08-17 16:05 | NUR ---
Patient speaking to family on the phone. No distress observed. Continue to monitor.
--- NOTE | 2020-08-17 16:25 | NUR ---
Patient came up to RN and asked when he was going upstairs. RN assumed he meant to [facility]. However patient described a 3 person room where he had his laptop and phone. RN asked why he thought he needed to be admitted. Patient states I don't feel good. I'm anxious. RN explained to patient that he is medically cleared and needs to be evaluated to see if his [employer] hold is upheld. RN had explained this to him this morning. And advised him he is awaiting [facility] to evaluate him. They did not evaluate him as of yet due to his ETOH level being at 0.243 at 0715 this morning. RN to speak to Dr to see if we can change his Ativan from TID to QID so I can give him some relief from his anxiety. Continue to monitor.
--- NOTE | 2020-08-17 17:12 | NUR ---
RN gave patient 1 mg Ativan. Patient thinks he is going into withdrawal. Patient only started drinking 2.5 weeks ago. RN explained to patient that he is just very anxious. Patient then tells RN that is has a Panic D/O and a Disassociative D/O. Patient is moving to [facility] because they specialize in Disassociative D/Os at a hospital there. Patient is more calm after speaking to patient.
--- NOTE | 2020-08-17 18:57 | NUR ---
Patient ate dinner, ambulated to bathroom to void, returned to bed and sleep. Bed in low fowlers position. In direct view from nurses station.
--- NOTE | 2020-08-17 19:44 | NUR ---
Patient is being interviewed at bedside by [facility].
[2020-08-17] MEDS ORDERED: pantoprazole 40mg Tablet.DR PO SCH (20:00)
[2020-08-17 20:56] VITALS: BP 143/86
[2020-08-18] MEDS ORDERED: lamoTRIgine 100mg tablet PO SCH (08:00)
== END 2020-08-17 21:01 | disposition home or self-care (01) ==
LOC: ER 05:57
DX: R45.851 Suicidal ideations (principal); K21.9 Gastro-esophageal reflux disease without esophagitis; F41.9 Anxiety disorder, unspecified; F31.9 Bipolar disorder, unspecified; F12.90 Cannabis use, unspecified, uncomplicated; F10.10 Alcohol abuse, uncomplicated; Z86.69 Personal history of other diseases of the nervous system and sense organs; Z88.0 Allergy status to penicillin; Z79.899 Other long term (current) drug therapy
CPT/HCPCS: 80053; 80305; 80320; 85007; 85025; 99285